=== PATIENT | female | born 1980 | race Caucasian/White ===

== ENCOUNTER 2024-07-03 09:12 | Day surgery (SDC) | payer BC ==
[2024-07-03] MEDS ORDERED: Ondansetron 4 MG/2 ML SDV ONE (09:38)
[2024-07-03] MEDS ORDERED: Rocuronium 50 MG/5 ML Vial ONE (09:38)
[2024-07-03] MEDS ORDERED: Dexamethasone 4 MG/ML SDV ONE (09:38)
[2024-07-03] MEDS ORDERED: Glycopyrrolate 0.2 MG/ML 5 ML MDV ONE (09:38)
[2024-07-03] MEDS ORDERED: Neostigmine Methylsulfate 10 MG/10 ML MDV ONE (09:38)
[2024-07-03] MEDS ORDERED: Succinylcholine 200 MG/10 ML MDV ONE (09:38)
[2024-07-03] MEDS ORDERED: fentaNYL 250 MCG/5 ML SDV ONE (09:38)
[2024-07-03] MEDS ORDERED: Propofol 200 MG/20 ML SDV ONE (09:38)
[2024-07-03 09:49] LABS: HEMATOCRIT 38.5 % (34.3-46.0); HEMOGLOBIN 13.5 g/dL (11.2-15.5); MEAN CORPUSCULAR HEMOGLOBIN 33.1 pg (31.6-35.5); MEAN CORPUSCULAR HGB CONC 35.1 g/dL (31.6-35.5); MEAN CORPUSCULAR VOLUME 94.4 fL (81.4-99.0); RED BLOOD CELL COUNT 4.08 M/uL (3.77-5.24); WHITE BLOOD CELL COUNT,WBC 22.5 K/uL (3.2-11.0)
[2024-07-03] MEDS: Lactated Ringers 1,000 ML IV SCH (09:49)
[2024-07-03 10:04] LABS: CALCIUM 9.8 mg/dL (8.5-10.1); CREATININE 0.9 mg/dL (0.6-1.0); EST CRCL DRUG DOSING (CG) 83.36 mL/min; POTASSIUM,K 3.5 mmol/L (3.6-5.2)
[2024-07-03 10:06] LABS: ANION GAP 16.5 mmol/L (5.0-14.0)
[2024-07-03] MEDS: Enoxaparin 40 MG/0.4 ML Syringe SUBCUT ONE (10:16)
[2024-07-03] MEDS: metroNIDAZOLE/Normal Saline 500 MG in Premix Bag 1 BAG IV ONE (10:20)
[2024-07-03] MEDS: Bupivacaine 0.5% 50 ML MDV ONE (11:10)
[2024-07-03] MEDS: Lidocaine 1% with EPINEPHrine 1:100,000 50 ML MDV ONE (11:10)
[2024-07-03] MEDS: ceFAZolin 2 GM in Premix Bag 1 BAG IV ONE (11:20)
== END 2024-07-03 13:03 | disposition home or self-care (01) ==
LOC: JP.SDS 09:12
PROVIDERS: ATTEND Surgery
DX: K61.1 Rectal abscess (principal)
CPT/HCPCS: 36415; 80048; 85027; 87070; 87075; 87077; 87186; 87205; J0330; J0665; J0690; J1100; J1596; J1650; J1836; J2405; J2704; J2710; J3010; J3490; J7120

== ENCOUNTER 2024-11-25 07:40 | Inpatient (IN) | payer BC ==
[2024-11-25 08:41] LABS: PLATELET COUNT,PLT 308 K/uL (130-375); RED BLOOD CELL COUNT 4.06 M/uL (3.77-5.24); WHITE BLOOD CELL COUNT,WBC 17.8 K/uL (3.2-11.0)
[2024-11-25 08:57] LABS: BLOOD UREA NITROGEN,BUN 14.0 mg/dL (7-18); CARBON DIOXIDE,CO2 28.0 mmol/L (21-32); CHLORIDE,CL 102.0 mmol/L (100-108); CREATININE 0.9 mg/dL (0.6-1.0); EST CRCL DRUG DOSING (CG) 83.36 mL/min; ESTIMATED GFR 81.0 mL/min (>60); GLUCOSE RANDOM 115.0 mg/dL (74-106); POTASSIUM,K 3.8 mmol/L (3.6-5.2); SODIUM,NA 136.0 mmol/L (140-148)
[2024-11-25 08:58] LABS: INR 1.0
[2024-11-25 09:06] LABS: BAND ABSOLUTE MAN 0.36 K/uL; BAND PERCENT MAN 2 % (5-11); LYMPHOCYTES ABSOLUTE MAN 2.14 K/uL (0.8-3.3); LYMPHOCYTES PERCENT MAN 12 % (24-44); MONOCYTES ABSOLUTE MAN 0.71 K/uL (0.20-0.90); MONOCYTES PERCENT MAN 4 % (2-6); NEUTROPHILS ABSOLUTE MAN 14.60 K/uL (1.0-7.6); SEG NEUTROPHILS PERCENT MAN 82 % (36-66)
[2024-11-25] MEDS: Iopamidol 612 MG/ML 100 ML Bottle IV SCH (09:21)
[2024-11-25] MEDS: Sodium Chloride 0.9% 10 ML Syringe FLUSH ONE (09:21)
[2024-11-25] MEDS: Lactated Ringers 1,000 ML IV SCH (09:27)
[2024-11-25] MEDS ORDERED: fentaNYL 250 MCG/5 ML SDV ONE (10:06)
[2024-11-25] MEDS ORDERED: Ondansetron 4 MG/2 ML SDV ONE (10:43)
[2024-11-25] MEDS ORDERED: Propofol 200 MG/20 ML SDV ONE (10:43)
[2024-11-25] MEDS ORDERED: Dexamethasone 4 MG/ML SDV ONE (10:43)
[2024-11-25] MEDS: Lactated Ringers 1,000 ML IV ONE (10:45)
[2024-11-25] MEDS: Piperacillin/Tazobactam/Dext 4.5 GM in Premix Bag 1 BAG IV ONE (11:23)
[2024-11-25] MEDS: Bupivacaine 0.5%/EPINEPHrine 1:200,000 50 ML MDV ONE (12:08)
[2024-11-25] MEDS ORDERED: Sodium Chloride 0.9% 10 ML Syringe IV PRN (12:22)
[2024-11-25] MEDS ORDERED: Naloxone 0.4 MG/ML SDV IVPUSH PRN (13:00)
[2024-11-25] MEDS ORDERED: Sodium Chloride 0.9% 10 ML Syringe FLUSH PRN (13:00)
[2024-11-25] MEDS ORDERED: Ondansetron 4 MG/2 ML SDV IV PRN (13:00)
[2024-11-25] MEDS: Piperacillin/Tazobactam/Dext 4.5 GM in Premix Bag 1 BAG IV SCH (15:13)
[2024-11-26 05:59] LABS: BASOPHILS PERCENT AUTO 0.1 % (0.1-1.3); EOSINOPHILS PERCENT AUTO 0.1 % (0.0-5.4); IMMATURE GRAN ABSOLUTE AUTO 0.07 K/uL (0.00-0.23); IMMATURE GRAN PERCENT AUTO 0.4 % (0.0-0.7); LYMPHOCYTES ABSOLUTE AUTO 1.99 K/uL (0.8-3.3); LYMPHOCYTES PERCENT AUTO 11.5 % (11.4-47.7); MONOCYTES ABSOLUTE AUTO 1.10 K/uL (0.20-0.90); MONOCYTES PERCENT AUTO 6.4 % (3.3-12.6); NEUTROPHILS ABSOLUTE AUTO 14.05 K/uL (1.0-7.6); NEUTROPHILS PERCENT AUTO 81.5 % (40.0-78.1); PLATELET COUNT,PLT 295 K/uL (130-375); RED BLOOD CELL COUNT 3.50 M/uL (3.77-5.24); WHITE BLOOD CELL COUNT,WBC 17.2 K/uL (3.2-11.0)
[2024-11-26 06:02] LABS: BASOPHILS ABSOLUTE AUTO 0.02 K/uL (0.00-0.10); EOSINOPHILS ABSOLUTE AUTO 0.01 K/uL (0.00-0.40)
[2024-11-26 06:14] LABS: BLOOD UREA NITROGEN,BUN 7.0 mg/dL (7-18); CARBON DIOXIDE,CO2 26.0 mmol/L (21-32); CHLORIDE,CL 104.0 mmol/L (100-108); CREATININE 0.7 mg/dL (0.6-1.0); EST CRCL DRUG DOSING (CG) 107.18 mL/min; ESTIMATED GFR 109.0 mL/min (>60); GLUCOSE RANDOM 124.0 mg/dL (74-106); POTASSIUM,K 3.9 mmol/L (3.6-5.2); SODIUM,NA 139.0 mmol/L (140-148)
[2024-11-26] MEDS ORDERED: LYSINE 500 MG PO SCH (09:00)
== END 2024-11-26 13:38 | disposition home or self-care (01) | DRG 223 ==
LOC: JP.ED 07:40 → JP.SDS 09:45 → JP.ICU 10:01
PROVIDERS: ADMIT Hospitalist; ATTEND Surgery
PROC: 0D9P0ZZ Drainage of Rectum, Open Approach (ICD-10-PCS; principal; 2024-11-25 10:15)
DX: K61.1 Rectal abscess (principal); K59.09 Other constipation; E66.9 Obesity, unspecified; D68.51 Activated protein C resistance; F17.200 Nicotine dependence, unspecified, uncomplicated; Z86.16 Personal history of COVID-19; Z79.890 Hormone replacement therapy; Z79.899 Other long term (current) drug therapy; Z90.710 Acquired absence of both cervix and uterus; Z86.718 Personal history of other venous thrombosis and embolism; Z68.32 Body mass index [BMI] 32.0-32.9, adult
CPT/HCPCS: 00902-QZ; 36415; 74177; 80048; 81025; 83735; 85025; 85610; 87070; 87075; 87077; 87186; 87205; 96361; 96374; 99284-25; A9270-GY; J1100; J1171; J1650; J2405; J2543; J2704; J3010; J3490; J7030; J7120; Q9967

== ENCOUNTER 2025-01-14 06:33 | Day surgery (SDC) | payer BC ==
[2025-01-14] MEDS: Lactated Ringers 1,000 ML IV SCH (07:14)
[2025-01-14] MEDS ORDERED: fentaNYL 50 MCG/ML SDV ONE (07:16)
[2025-01-14] MEDS ORDERED: Propofol 200 MG/20 ML SDV ONE ×4 (07:16→08:23)
[2025-01-14] MEDS ORDERED: Midazolam 1 MG/ML 2 ML SDV ONE (07:16)
[2025-01-14] MEDS: Bupivacaine 0.25%/EPINEPHrine 1:200,000 30 ML SDV ONE (09:37)
== END 2025-01-14 10:00 | disposition home or self-care (01) ==
LOC: JP.SDS 06:33
PROVIDERS: ATTEND Surgery
DX: K61.1 Rectal abscess (principal); K64.4 Residual hemorrhoidal skin tags; K57.30 Diverticulosis of large intestine without perforation or abscess without bleeding; E66.9 Obesity, unspecified; F17.210 Nicotine dependence, cigarettes, uncomplicated; Z68.30 Body mass index [BMI] 30.0-30.9, adult; Z79.899 Other long term (current) drug therapy
CPT/HCPCS: 00902; 45380; 46020; J2250; J2704; J3010; J7120; J0665